=== PATIENT | male | born 1955 | race Caucasian/White ===

== ENCOUNTER 2022-07-01 09:32 | Emergency (ER) | payer MEDICARE, OTHER ==
[~2022-07-01] VITALS: Ht 170.2 cm; Wt 86.2 kg
[~2022-07-01 09:32] MED LIST: ASPI81CH; ATOR10; ATOR80; CARV3.125; LISHYD1012; LISHYD1012 PO; LISI5 PO; METFORMIN HCL1000 M1 PO
[2022-07-01 10:49] LABS: Influenza A, PCR NEGATIVE (NEGATIVE); Influenza B, PCR NEGATIVE (NEGATIVE); Resp Syncytial Virus, PCR NEGATIVE (NEGATIVE)
[2022-07-01 11:06] LABS: SARS-Cov-2 (COVID-19) PCR, MMC POSITIVE (NEGATIVE)
== END 2022-07-01 12:55 | disposition home or self-care (01) ==
LOC: ER 09:32
PROVIDERS: Physician Assistant
DX: U07.1 COVID-19 (principal); E11.9 Type 2 diabetes mellitus without complications; I10 Essential (primary) hypertension; E78.5 Hyperlipidemia, unspecified; Z79.82 Long term (current) use of aspirin; Z79.899 Other long term (current) drug therapy
CPT/HCPCS: 0241U